=== PATIENT | female | born 1975 | race Caucasian/White ===

== ENCOUNTER 2021-07-20 04:23 | Inpatient (IN) | payer OTHER ==
[2021-07-20] VITALS (8 sets, daily range): BP systolic 118–134; BP diastolic 59–86
[~2021-07-20] VITALS: Ht 170.2 cm; Wt 100.5 kg
[2021-07-20 04:55] LABS: Basophils # (auto) 0.1 10 ^3/uL (0-0.2); Eosinophils # (auto) 0 10 ^3/uL (0-0.8); Lymphocytes # (auto) 1.2 10 ^3/uL (0.4-5.4); Monocytes # (auto) 0.5 10 ^3/uL (0-1.3)
[2021-07-20 04:58] LABS: Eosinophils % (auto) 0.4 % (0.0-7.0); Hematocrit 37.6 % (36.0-46.0); Hemoglobin 13.6 g/dL (12.2-16.2); Lymphocytes % (auto) 10.5 % (10.0-50.0); Mean Corpuscular Hemoglobin 31.9 pg (28.0-32.0); Mean Corpuscular Hgb Conc. 36.2 g/dL (32.0-36.0); Mean Corpuscular Volume 88.2 fL (80.0-100.0); Monocytes % (auto) 4.5 % (0.0-12.0); Neutrophils # (auto) 9.3 10 ^3/uL (1.6-8.6); Neutrophils % (auto) 83.6 % (37.0-80.0); Red Blood Cells 4.26 10^6/uL (4.0-5.20); Red Cell Distribution Width 12.8 % (11.8-14.3); White Blood Cell 11.1 10^3/uL (4.4-10.8)
[2021-07-20 05:15] LABS: Albumin 4.1 g/dL (3.4-5.0); Calcium 9.1 mg/dL (8.5-10.1); Potassium 3.8 mmol/L (3.5-5.1)
[2021-07-20 05:17] LABS: BUN/Creatinine Ratio 11.4
[2021-07-20 05:20] LABS: Bilirubin, Total 0.6 mg/dL (0.2-1.0); Total Protein 6.9 g/dL (6.4-8.2)
[2021-07-20] MEDS ORDERED: CLOPIDOGREL BISULFATE 75 MG TAB PO ONE ×2 (05:45→11:45)
[2021-07-20] MEDS ORDERED: NITROGLYCERIN 0.4MG/HR TOPICAL PATCH TD ONE (05:45)
[2021-07-20] MEDS ORDERED: HEPARIN SODIUM (PORCINE) 5000 UNITS/ML 1ML VIAL IV ONE ×2 (05:45→22:00)
[2021-07-20] MEDS ORDERED: HEPARIN DRIP/D5W 100UNITS/ML 250 ML IV SCH ×2 (05:45→07:15)
[2021-07-20] MEDS ORDERED: ASPirin 325 MG TAB PO ONE (05:45)
[2021-07-20 06:21] LABS: INR 0.97 (0.9-1.15); Partial Thromboplastin Time 30.4 sec (23.6-33.0)
[2021-07-20] MEDS ORDERED: ONDANSETRON HCL 4 MG/2 ML VIAL IV PRN (06:30)
[2021-07-20] MEDS ORDERED: NITROGLYCERIN 0.4 MG SL TAB SL PRN (06:30)
[2021-07-20] MEDS ORDERED: MORPHINE SULFATE INJECTION 2 MG/ML SYRG IV PRN (06:30)
[2021-07-20 06:52] LABS: Cholesterol 227 mg/dL (< 200)
[2021-07-20 06:55] LABS: HDL Cholesterol 53 mg/dL (40-59); LDL Cholesterol 141 mg/dL (< 100); Triglycerides 161 mg/dL (< 150)
[2021-07-20] MEDS: SODIUM CHLORIDE 0.9% 1,000 ML IV SCH ×2 (06:55→19:50)
[2021-07-20] MEDS: ASPirin 81 mg TAB PO SCH (10:00)
[2021-07-20] MEDS: PANTOPRAZOLE 40 MG/10 ML VIAL INJ IV SCH (10:18)
[2021-07-20] MEDS ORDERED: fentaNYL CITRATE 100 MCG/2 ML VL ONE (10:40)
[2021-07-20] MEDS ORDERED: LIDOCAINE 2%HCL (LOCAL ANESTH.) INJ 10ml MDV ONE (10:40)
[2021-07-20] MEDS ORDERED: MIDAZOLAM HCL 2MG/2ML 2ml VIAL (1mg/ml) ONE (10:40)
[2021-07-20] MEDS ORDERED: SODIUM CHL 0.9% 0 ML ONE (10:40)
[2021-07-20] MEDS ORDERED: ANGIOMAX 250 MG VIAL IV ONE (10:40)
[2021-07-20] MEDS ORDERED: IODIXANOL 320MG/ML 100ML BTL IV ONE (10:56)
[2021-07-20] MEDS ORDERED: HEPARIN SODIUM (PORCINE) 5000 UNITS/ML 1ML VIAL ONE (10:58)
[2021-07-20] MEDS ORDERED: VERAPAMIL 2.5MG/ML INJ 2ML VIAL IV ONE (10:58)
[2021-07-20] MEDS ORDERED: ONDANSETRON HCL 4 MG/2 ML VIAL ONE (11:29)
[2021-07-20] MEDS ORDERED: METOCLOPRAMIDE HCL 5MG/ml INJ 2ml VIAL ONE (12:07)
[2021-07-20] MEDS ORDERED: METOCLOPRAMIDE HCL 5MG/ml INJ 2ml VIAL IV ONE (12:15)
[2021-07-20 13:23] LABS: Basophils # (auto) 0 10 ^3/uL (0-0.2); Basophils % (auto) 0.5 % (0.0-2.0); Eosinophils # (auto) 0 10 ^3/uL (0-0.8); Eosinophils % (auto) 0.6 % (0.0-7.0); Hematocrit 36.8 % (36.0-46.0); Hemoglobin 12.9 g/dL (12.2-16.2); Lymphocytes # (auto) 1.1 10 ^3/uL (0.4-5.4); Lymphocytes % (auto) 13.7 % (10.0-50.0); Mean Corpuscular Hemoglobin 31.7 pg (28.0-32.0); Mean Corpuscular Volume 90.5 fL (80.0-100.0); Monocytes # (auto) 0.7 10 ^3/uL (0-1.3); Monocytes % (auto) 8.6 % (0.0-12.0); Neutrophils # (auto) 5.9 10 ^3/uL (1.6-8.6); Neutrophils % (auto) 76.6 % (37.0-80.0); Red Blood Cells 4.07 10^6/uL (4.0-5.20); White Blood Cell 7.8 10^3/uL (4.4-10.8)
[2021-07-20 13:38] LABS: INR 1.01 (0.9-1.15); Partial Thromboplastin Time 29.9 sec (23.6-33.0)
[2021-07-20] MEDS: HEPARIN DRIP/D5W 100UNITS/ML 250 ML IV SCH (15:25)
[2021-07-20] MEDS ORDERED: HYDROcodone-ACET 5/325MG TAB PO PRN (18:30)
[2021-07-20] MEDS ORDERED: ACETAMINOPHEN 500 MG TAB PO PRN (18:30)
[2021-07-20] MEDS: ATORVASTATIN 20 MG TAB PO SCH (21:01)
[2021-07-20 21:37] LABS: INR 1.02 (0.9-1.15); Partial Thromboplastin Time 34.3 sec (23.6-33.0)
[2021-07-21] MEDS ORDERED: SERT-160 PO (03:07)
[2021-07-21 05:00] VITALS: BP 128/85
[2021-07-21 05:47] LABS: Basophils # (auto) 0 10 ^3/uL (0-0.2); Basophils % (auto) 0.7 % (0.0-2.0); Eosinophils # (auto) 0.1 10 ^3/uL (0-0.8); Eosinophils % (auto) 1.6 % (0.0-7.0); Hematocrit 36.5 % (36.0-46.0); Hemoglobin 12.8 g/dL (12.2-16.2); Lymphocytes # (auto) 1.5 10 ^3/uL (0.4-5.4); Lymphocytes % (auto) 22.8 % (10.0-50.0); Mean Corpuscular Hemoglobin 31.5 pg (28.0-32.0); Mean Corpuscular Hgb Conc. 35.1 g/dL (32.0-36.0); Mean Corpuscular Volume 89.9 fL (80.0-100.0); Monocytes # (auto) 0.7 10 ^3/uL (0-1.3); Monocytes % (auto) 10.2 % (0.0-12.0); Neutrophils # (auto) 4.4 10 ^3/uL (1.6-8.6); Neutrophils % (auto) 64.7 % (37.0-80.0); Nucleated Red Blood Cells % 0.1 %; Red Blood Cells 4.06 10^6/uL (4.0-5.20); Red Cell Distribution Width 12.9 % (11.8-14.3); White Blood Cell 6.7 10^3/uL (4.4-10.8)
[2021-07-21 05:57] LABS: INR 1.04 (0.9-1.15); Partial Thromboplastin Time 42.7 sec (23.6-33.0)
[2021-07-21 06:05] LABS: Albumin 3.5 g/dL (3.4-5.0); BUN/Creatinine Ratio 11.1; Calcium 8.4 mg/dL (8.5-10.1); Potassium 3.5 mmol/L (3.5-5.1)
[2021-07-21 06:08] LABS: Bilirubin, Total 0.4 mg/dL (0.2-1.0); Total Protein 6.4 g/dL (6.4-8.2)
[2021-07-21 08:00] VITALS: BP 144/97
[2021-07-21 08:46] VITALS: BP 134/93
[2021-07-21] MEDS: ASPirin 81 mg TAB PO SCH (09:22)
[2021-07-21] MEDS: SODIUM CHLORIDE 0.9% 1,000 ML IV SCH (09:23)
[2021-07-21] MEDS: PANTOPRAZOLE 40 MG/10 ML VIAL INJ IV SCH (09:23)
[2021-07-21] MEDS: CLOPIDOGREL BISULFATE 75 MG TAB PO SCH (09:23)
[2021-07-21] MEDS: HEPARIN DRIP/D5W 100UNITS/ML 250 ML IV SCH (09:39)
[2021-07-21 12:13] LABS: Partial Thromboplastin Time 29.8 sec (23.6-33.0)
[2021-07-21 12:34] VITALS: BP 121/68
[2021-07-21] MEDS ORDERED: diphenhdrAMINE HCL 25 MG CAP PO PRN (13:45)
[2021-07-21 16:51] VITALS: BP 138/77
[2021-07-21 18:26] LABS: INR 1.01 (0.9-1.15); Partial Thromboplastin Time 64.9 sec (23.6-33.0)
[2021-07-21] MEDS: ATORVASTATIN 20 MG TAB PO SCH (21:12)
[2021-07-21 22:00] VITALS: BP 138/85
[2021-07-22 05:00] VITALS: BP 128/84
[2021-07-22 07:05] LABS: Hematocrit 37.6 % (36.0-46.0); Hemoglobin 13.3 g/dL (12.2-16.2); Mean Corpuscular Hemoglobin 31.7 pg (28.0-32.0); Mean Corpuscular Hgb Conc. 35.5 g/dL (32.0-36.0); Mean Corpuscular Volume 89.4 fL (80.0-100.0); Red Blood Cells 4.21 10^6/uL (4.0-5.20); White Blood Cell 7.7 10^3/uL (4.4-10.8)
[2021-07-22 09:00] VITALS: BP 133/86
[2021-07-22] MEDS: PANTOPRAZOLE 40 MG/10 ML VIAL INJ IV SCH (10:03)
[2021-07-22] MEDS: CLOPIDOGREL BISULFATE 75 MG TAB PO SCH (10:04)
[2021-07-22] MEDS: ASPirin 81 mg TAB PO SCH (10:04)
[2021-07-22] MEDS ORDERED: ASPI1TAB20 PO (10:16)
[2021-07-22] MEDS ORDERED: CLOP75TA70 PO (10:16)
[2021-07-22] MEDS ORDERED: ATO40T PO (10:16)
[2021-07-22 11:05] VITALS: BP 133/86
== END 2021-07-22 12:35 | disposition home or self-care (01) | DRG 280 ==
LOC: ER 04:23 → TELE 06:24 → TELE-CENTR 13:05
PROVIDERS: ADMIT Nurse Practitioner; ATTEND Internal Medicine
PROC: 4A023N7 Measurement of Cardiac Sampling and Pressure, Left Heart, Percutaneous Approach (ICD-10-PCS; principal; 2021-07-20)
PROC: B211YZZ Fluoroscopy of Multiple Coronary Arteries using Other Contrast (ICD-10-PCS; 2021-07-20)
DX: I21.4 Non-ST elevation (NSTEMI) myocardial infarction (principal); I25.42 Coronary artery dissection; E66.9 Obesity, unspecified; F17.210 Nicotine dependence, cigarettes, uncomplicated; E78.5 Hyperlipidemia, unspecified; Z20.822 Contact with and (suspected) exposure to COVID-19; Z68.34 Body mass index [BMI] 34.0-34.9, adult
CPT/HCPCS: 36415; 71045; 80053; 80061; 83036; 84443; 84484; 84702; 85025; 85027; 85610; 85730; 93005; 93306; 93458; 96365; 96375; 99152; 99153; 99291; C9113; G0378; J2001; J2250; J2405; Q9967

== ENCOUNTER 2024-02-05 07:36 | Inpatient (IN) | payer OTHER ==
[~2024-02-05] VITALS: Ht 170.2 cm; Wt 100.6 kg
[~2024-02-05 07:36] MED LIST: ASPI1TAB20 PO; ATOR-507 PO; CLOP75TA70 PO; SERT-160 PO
[2024-02-05 07:56] LABS: Basophils # (auto) 0.1 10 ^3/uL (0-0.2); Basophils % (auto) 0.8 % (0.0-2.0); Eosinophils # (auto) 0.1 10 ^3/uL (0-0.8); Eosinophils % (auto) 1.3 % (0.0-7.0); Hematocrit 43.4 % (36.0-46.0); Hemoglobin 14.8 g/dL (12.2-16.2); Lymphocytes # (auto) 1.9 10 ^3/uL (0.4-5.4); Lymphocytes % (auto) 21.5 % (10.0-50.0); Mean Corpuscular Hemoglobin 31.4 pg (28.0-32.0); Mean Corpuscular Hgb Conc. 34.2 g/dL (32.0-36.0); Monocytes # (auto) 0.7 10 ^3/uL (0-1.3); Monocytes % (auto) 7.7 % (0.0-12.0); Neutrophils % (auto) 68.7 % (37.0-80.0); Platelet Count (auto) 343 10^3/uL (140-450); Red Blood Cells 4.72 10^6/uL (4.0-5.20); Red Cell Distribution Width 13.7 % (11.8-14.3); White Blood Cell 8.8 10^3/uL (4.4-10.8)
[2024-02-05 08:10] LABS: Alanine Aminotransferase 19 U/L (7-40); Albumin 4.9 g/dL (3.2-4.8); Alkaline Phosphatase 89 U/L (46-116); Anion Gap 8 (5-15); Aspartate Aminotransferase 15 U/L (13-40); BUN/Creatinine Ratio 13.3 (10.0-20.0); Blood Urea Nitrogen 11 mg/dL (9-23); Calcium 9.8 mg/dL (8.7-10.4); Carbon Dioxide 25 mmol/L (20-31); Chloride 107 mmol/L (98-107); Glucose 131 mg/dL (74-106); Potassium 4.2 mmol/L (3.5-5.1); Sodium 140 mmol/L (136-145)
[2024-02-05 08:11] LABS: Bilirubin, Total 0.4 mg/dL (0.2-1.0); Total Protein 7.6 g/dL (5.7-8.2)
[2024-02-05 08:23] LABS: INR 0.95 (0.9-1.15); Partial Thromboplastin Time 29.7 SEC (24.5-34.5); Prothrombin Time 10.1 sec (9.3-11.8)
[2024-02-05 08:52] LABS: Urine Bacteria None Seen /hpf (None Seen)
[2024-02-05 09:20] LABS: Urine Blood Negative /uL (Negative); Urine Clarity Clear (Clear); Urine Color Light-Yellow (Yellow); Urine Protein, UAD Negative (Negative); Urine Specific Gravity 1.022 (1.001-1.035); Urine Urobilinogen Normal (Negative); Urine WBC 2 /hpf (0 - 5)
[2024-02-05] MEDS ORDERED: HYDROmorphone HCL 2 MG/ML VL/or syr IV PRN (13:15)
[2024-02-05] MEDS ORDERED: DOCUSATE SOD 100 MG CAP PO PRN (13:15)
[2024-02-05] MEDS ORDERED: NITROGLYCERIN 0.4 MG SL TAB SL PRN (13:15)
[2024-02-05] MEDS ORDERED: ONDANSETRON HCL 4 MG/2 ML VIAL IV PRN (13:15)
[2024-02-05] MEDS ORDERED: MORPHINE SULFATE INJ 2 MG/ml SYRG IV PRN (13:15)
[2024-02-05] MEDS ORDERED: ACETAMINOPHEN 325 MG TAB PO PRN (13:15)
[2024-02-05] MEDS: ASPirin 325 MG TAB PO ONE (13:26)
[2024-02-05] MEDS: KETOROLAC TROMETH 60MG/2ML VIAL IM ONE (13:26)
[2024-02-05] MEDS: NITROGLYCERIN 0.4 MG SL TAB SL ONE (13:31)
[2024-02-05] MEDS: SODIUM CHLOR 0.9% PF (SALINE LOCK) 10ML VIAL/SYR IV SCH (14:00)
[2024-02-05 15:10] VITALS: O2SAT 97
[2024-02-05] MEDS: HYDROcodone-ACET 5/325MG TAB PO PRN (15:51)
[2024-02-05 16:47] LABS: Magnesium 2.3 mg/dL (1.6-2.6)
[2024-02-05 17:20] VITALS: BP 121/87; PULSE 66; RESP 16; TEMP 98.1; O2SAT 95
[2024-02-05 17:53] VITALS: O2SAT 97
[2024-02-05] MEDS: ATORVASTATIN 20 MG TAB PO SCH (18:34)
[2024-02-05 20:00] VITALS: PULSE 67; RESP 18
[2024-02-05 21:00] VITALS: BP 124/85; PULSE 90; RESP 19; TEMP 98; O2SAT 98
[2024-02-06] VITALS (8 sets, daily range): BP systolic 120–158; BP diastolic 80–93; PULSE 61–88; RESP 16–19; TEMP 36.8; O2SAT 96–99
[2024-02-06 07:19] LABS: Basophils # (auto) 0 10 ^3/uL (0-0.2); Basophils % (auto) 0.4 % (0.0-2.0); Eosinophils # (auto) 0.2 10 ^3/uL (0-0.8); Eosinophils % (auto) 2.1 % (0.0-7.0); Hematocrit 41.1 % (36.0-46.0); Hemoglobin 14.2 g/dL (12.2-16.2); Lymphocytes % (auto) 26.9 % (10.0-50.0); Mean Corpuscular Hemoglobin 31.4 pg (28.0-32.0); Mean Corpuscular Hgb Conc. 34.6 g/dL (32.0-36.0); Mean Corpuscular Volume 90.8 fL (80.0-100.0); Monocytes # (auto) 0.5 10 ^3/uL (0-1.3); Neutrophils # (auto) 4.8 10 ^3/uL (1.6-8.6); Neutrophils % (auto) 63.6 % (37.0-80.0); Nucleated Red Blood Cells % 0.1 %; Platelet Count (auto) 297 10^3/uL (140-450); Red Blood Cells 4.53 10^6/uL (4.0-5.20); Red Cell Distribution Width 13.4 % (11.8-14.3); White Blood Cell 7.5 10^3/uL (4.4-10.8)
[2024-02-06 07:34] LABS: Alanine Aminotransferase 18 U/L (7-40); Albumin 4.4 g/dL (3.2-4.8); Alkaline Phosphatase 75 U/L (46-116); Anion Gap 7 (5-15); Aspartate Aminotransferase 13 U/L (13-40); BUN/Creatinine Ratio 16.4 (10.0-20.0); Blood Urea Nitrogen 12 mg/dL (9-23); Calcium 9.3 mg/dL (8.7-10.4); Carbon Dioxide 23 mmol/L (20-31); Chloride 110 mmol/L (98-107); Glucose 100 mg/dL (74-106); Magnesium 2.2 mg/dL (1.6-2.6); Potassium 3.9 mmol/L (3.5-5.1); Sodium 140 mmol/L (136-145)
[2024-02-06 07:35] LABS: Bilirubin, Total 0.7 mg/dL (0.2-1.0); Total Protein 6.5 g/dL (5.7-8.2)
[2024-02-06] MEDS ORDERED: CLOPIDOGREL BISULFATE 75 MG TAB PO SCH (10:00)
[2024-02-06] MEDS: PANTOPRAZOLE 40 MG/10 ML VIAL INJ IV SCH (11:53)
[2024-02-06] MEDS: ASPirin-EC 81 mg tab PO SCH (11:53)
[2024-02-06] MEDS: SERTRALINE HCL 50 MG TAB PO SCH (11:53)
[2024-02-06] MEDS: ENOXAPARIN SOD 40 MG/0.4 ML SYRINGE SC SCH (11:53)
== END 2024-02-06 13:45 | disposition home or self-care (01) | DRG 313 ==
LOC: ER 07:36 → TELE 13:12 → TELE-WESTW 17:32
PROVIDERS: ADMIT Internal Medicine; ATTEND Internal Medicine
DX: R07.89 Other chest pain (principal); I25.42 Coronary artery dissection; I25.10 Atherosclerotic heart disease of native coronary artery without angina pectoris; E66.9 Obesity, unspecified; F17.210 Nicotine dependence, cigarettes, uncomplicated; I25.2 Old myocardial infarction; Z83.3 Family history of diabetes mellitus; Z79.82 Long term (current) use of aspirin; Z79.02 Long term (current) use of antithrombotics/antiplatelets; Z90.49 Acquired absence of other specified parts of digestive tract; Z68.34 Body mass index [BMI] 34.0-34.9, adult
CPT/HCPCS: 36415; 71045; 80053; 80061; 81001; 83036; 83735; 84443; 84484; 85025; 85379; 85610; 85730; 93005; 93017; 93306; 99291; G0378; J1885; J2470